=== PATIENT | female | born 1995 | race Caucasian/White ===

== ENCOUNTER 2022-08-27 10:39 | Emergency (ER) | payer OTHER, SELFPAY ==
[2022-08-27 10:58] VITALS: BP 128/55; PULSE 79; RESP 14; TEMP 36.6; O2SAT 99
--- NOTE | 2022-08-27 11:04 | DI.US.S_ITS ---
PROCEDURE: US OB <= 14 WEEKS FETUS INDICATIONS: BACK PAIN OUTSIDE/PRIOR DATING DATA: Last menstrual period (LMP): 05/30/2022 LMP-based estimated date of delivery (AYO): 03/06/2023 First dating scan (date and location): 08/27/2022 today Estimated date of delivery (AYO) from first dating scan: 03/01/2022 TECHNIQUE: Real-time scanning was performed of the fetus and maternal pelvic organs, with image documentation. Endovaginal scanning was also performed to better visualize the fetus and maternal ovaries. COMPARISON: None. FINDINGS: Intrauterine with ultrasound age of 13 weeks and 3 days. Estimated gestational age by LMP is 12 weeks and 5 days. Heart rate is 145 beats per minute. BPD is 2.2 cm. Head circumference is 8.3 cm. Abdominal circumference is 6.9 cm. Femur length is 1 cm. IMPRESSION: Living intrauterine with an ultrasound age of 13 weeks and 3 days. We strive to produce accurate, complete, and clear reports of imaging services. To assist us in improving patient care, this report was composed using standard report templates and voice recognition software. Therefore, it may contain abnormal punctuation, insertions and/or omissions. Occasional wrong-word or sound-alike substitutions may occur. Though we review the report and make efforts to correct it, we do recommend that the report be read carefully in proper context to recognize any text inaccuracies. Dictated by: Todd Berkowitz M.D. on 08/27/2022 at 11:50 Approved by: Todd Berkowitz M.D. on 08/27/2022 at 11:51
[2022-08-27 11:48] LABS: Add Manual Diff / Slide Review NO; Basophils Absolute Auto 100 /uL (0-100); Eosinophils Absolute Auto 200 /uL (0-450); Eosinophils Percent Auto 2.9 % (2-4); Hematocrit 38.5 % (36-46); Hemoglobin 13.1 g/dL (12.0-16.0); Lymphocytes Absolute Auto 2300 /uL (1100-4500); Lymphocytes Percent Auto 27.5 % (25-40); Mean Corpuscular HGB Conc 34.1 % (30-36); Mean Corpuscular Hemoglobin 30.3 PG (26-34); Monocytes Absolute Auto 400 /uL (0-900); Monocytes Percent Auto 4.6 % (3-14); Neutrophils Absolute Auto 5400 /uL (1500-7000); Platelet Count 252 X10^3/uL (150-400); Red Blood Cell Count 4.32 X10^6/uL (4.0-5.2); Red Cell Distribution Width 13.1 % (11.6-14.8); White Blood Cell Count 8.4 X10^3/uL (4.5-11.0)
[2022-08-27 11:54] LABS: Alanine Aminotransferase 12 IU/L (<35); Albumin 4.6 g/dL (3.5-5.0); Albumin Globulin Ratio 1.2 (1.0-2.8); Alkaline Phosphatase 71 U/L (38-126); Aspartate Aminotransferase 18 IU/L (14-36); BUN Creatinine Ratio 12.2 (6-22); Bilirubin Total 0.4 mg/dL (0.2-1.3); Blood Urea Nitrogen 5 mg/dL (7-17); Calcium 9.5 mg/dL (8.4-10.2); Carbon Dioxide 22 mmol/L (22-32); Chloride 102 mmol/L (98-107); Estimated Glomerular Filt Rate > 60 mL/min (>60); Globulin 3.8 g/dL (1.7-4.1); Glucose 82 mg/dL (70-100); HEMOLYSIS < 15 (0-50); Potassium 3.5 mmol/L (3.4-5.1); Sodium 135 mmol/L (137-145); Total Protein 8.4 g/dL (6.3-8.2)
[2022-08-27 12:40] LABS: HCG Quantitative /Beta subunit 38699 mIU/mL
== END 2022-08-27 13:00 | disposition left against medical advice (07) ==
PROVIDERS: Emergency Provider Emergency Medicine; PCP Student in an Organized Health Care Education/Training Program
DX: O26.891 Other specified pregnancy related conditions, first trimester (principal); M54.50 Low back pain, unspecified; Z3A.13 13 weeks gestation of pregnancy
CPT/HCPCS: 36415; 76801; 80053; 81003; 84702; 85025; 86850; 86900; 86901; 99284

== ENCOUNTER 2023-01-10 13:55 | Outpatient (CLI) | payer OTHER, SELFPAY ==
[2023-01-10 15:03] LABS: Appearance Urine UA CLEAR; Bilirubin Urine UA NEGATIVE (NEGATIVE); Color Urine UA YELLOW; Glucose Urine UA NEGATIVE (Negative); Ketones Urine UA NEGATIVE (NEGATIVE); Leukocyte Esterase Urine UA NEGATIVE (NEGATIVE); Nitrite Urine UA NEGATIVE (Negative); Occult Blood Urine UA NEGATIVE (Negative); Protein Urine UA NEGATIVE (Negative); Specific Gravity Urine UA <=1.005 (1.000-1.035); Urobilinogen Urine UA 0.2 E.U./dL (0.2)
[2023-01-10 15:04] LABS: pH Urine UA 6.5 (4.5-8.0)
[2023-01-10 15:22] LABS: Bacteria Urine Few (2-10); Culture Indicated Urine Cult Not Indicated; RBC Urine None Seen (0-5/HPF); Squamous Epithelial Cell Urine 5-10 /HPF (0-5/HPF); WBC Urine 1-5/HPF (0-5/HPF)
== END 2023-01-10 15:26 | disposition home or self-care (01) ==
LOC: LABOR 14:48 → OB 01-17 08:49
PROVIDERS: PCP Student in an Organized Health Care Education/Training Program; Referring Provider Obstetrics & Gynecology; Visit Provider Obstetrics & Gynecology
DX: O60.03 Preterm labor without delivery, third trimester (principal); O46.93 Antepartum hemorrhage, unspecified, third trimester; Z3A.32 32 weeks gestation of pregnancy
CPT/HCPCS: 59025; 81001; G0378; G0379

== ENCOUNTER 2023-01-12 06:41 | Inpatient (IN) | payer OTHER, SELFPAY ==
--- NOTE | 2023-01-12 | DI.US.S_ITS ---
PROCEDURE: US OB LIMITED INDICATIONS: BLEEDING OUTSIDE/PRIOR DATING DATA: Last menstrual period (LMP): 05/30/2022. LMP-based estimated date of delivery (AYO): 03/06/2023. First dating scan (date and location): 08/27/2022. Estimated date of delivery (AYO) from first dating scan: 03/01/2023. The calculations are made using the clinical AYO of 03/06/2023. TECHNIQUE: Real-time scanning was performed of the fetus, with image documentation. Endovaginal scanning: No COMPARISON: None. FINDINGS: A single living intrauterine gestation is present. Presentation: Vertex. Placenta: Placental position is anterior, without previa. Amniotic fluid index: 7.4 cm, normal range is 5-24 cm. Single deepest vertical pocket is 3.3 cm. heart rate: 153 beats per minute. Maternal cervical canal: 3.2 cm long. Normal lower limit is 2.5 cm. Estimated gestational age from initial scan: 32 weeks 3 days. IMPRESSION: Single living intrauterine at 32 weeks, 3 days, AYO of 05/30/2022. Borderline oligohydramnios. MARKO measures 7.4 centimeters, with deepest pocket measuring 3.3 centimeters. Cervix is closed. Dictated by: Jordan Lan M.D. on 01/12/2023 at 8:37 Approved by: Jordan Lan M.D. on 01/12/2023 at 8:45
--- NOTE | 2023-01-12 08:09 | P.TNLD_ITS ---
Visit Information Visit Information Date of evaluation: 01/12/23 On-call OB Provider: Ronda Sevilla Reason for Evaluation: Yes other Comments/Additional reasons for admission: here reporting vaginal bleeding at 32w2d accompanied by cramping. Anna woke around 0540 and felt some fluid coming out; thought it might be a little leaking urine, but when she went to the bathroom saw blood on the toilet paper and in the toilet. Contractions started soon after that. They are getting more painful now. Baby moving well. It's a girl. Denies other complaints. Reports normal with Leroy Poole. Planning to transfer to Dr. Sommer; has visit scheduled but has not yet been seen her yet by physician. History of pre-eclampsia with P1. History of hemorrhage with P1. History of GDM. Current Per ultrasound: Cervical length 3.2 cm. No signs of previa or placental abruption. Fetus vertex. Vital Signs Vital Signs: BP 118/71 Temp 98.1 F HR 120 RR 17 PFSH Medical History Anxiety Contact dermatitis Depression Gestational diabetes hemorrhage infection Preeclampsia Surgical History H/O dilation and curettage (~2015) [place] teeth extracted (~2015) Family History Father Diabetes mellitus Grandmother Hypertension Breast cancer Family/Other Hypertension Family/Other Breast cancer Family/Other Brain cancer Grandmother Brain cancer Social History marital status: number of children: 1 household members: spouse and children lives independently: Yes caregiver/support person: Yes [facility] pets and animals: No education level: college (some college) occupational status: employed current occupational exposures/hazards: No special carlos needs: No travel history: over 6 months ago seatbelt use: always water heater temp set < 120 deg: Yes working smoke detector in home: Yes fire extinguisher in home: No carbon monox detector in home: Yes firearms in home: Yes firearms unloaded and locked: Yes do you feel safe at home: Yes Smoking Status: Never smoker second hand exposure: Yes ( vapes, trying to quit) alcohol intake: former (very occasionally when not ) substance use type: does not use during the past year weight has: remained stable well-balanced diet: daily or most days daily servings fruits/ve or more times/day caffeine: Yes (~150mg/day) Type(s) of exercise: other (active w/ toddler) Review of Systems Review of Systems Narrative: negative except as mentioned in HPI. Exam Vital Signs (past 8 hours): see above Neck Neck: normal visual inspection Resp Effort & Inspection: normal respiratory effort Cardio Rate: regular rate Skin General: no rashes or lesions noted and other (several tattoos) Neuro General: patient oriented x3 and normal light touch, pain and propioception Extrem General: normal to inspection Psych Appearance: grossly normal Mental Status: mental status grossly normal Speech and Movement: speech and movement normal Mood: congruent mood Affect: normal affect Attitude: cooperative Thought Process: normal Thought Content: normal Other: Anxious Evaluation Evaluation Baseline heart rate: 125 Variability: Moderate (11-25) monitor accelerations: Present Monitor Decelerations: Absent Uterine Contraction Intensity: Moderate Status: Category l Diagnosis, Plan/Disposition Final Diagnosis (1) Vaginal bleeding during , antepartum: Status: Acute (2) Encounter for supervision of other normal , third trimester: Status: Acute (3) uterine contractions: Status: Acute Plan/Disposition Plan: CBC, CMP, ABO/Rh to be drawn. IV hydration. Consider testing for GC/CT/BV/yeast/trich. Discussed with lab. No affirm available. Can do urine GC/CT and wet mount. Will consider and report off to Dr. Sommer. Consider UC via straight cath due to bleeding. TVUS to evaluate placenta and cervical length. SVE TBD by Dr. Sommer. Signing out to Dr. Sommer.
[2023-01-12] MEDS: LACTATED RINGERS 1,000 ML 1000 ML IV (08:40)
[2023-01-12 08:51] LABS: Add Manual Diff / Slide Review NO; Basophils Absolute Auto 100 /uL (0-100); Basophils Percent Auto 0.8 % (0-2); Eosinophils Absolute Auto 100 /uL (0-450); Eosinophils Percent Auto 0.8 % (2-4); Hematocrit 35.1 % (36-46); Hemoglobin 11.8 g/dL (12.0-16.0); Lymphocytes Absolute Auto 1800 /uL (1100-4500); Mean Corpuscular HGB Conc 33.7 % (30-36); Mean Corpuscular Hemoglobin 30.1 PG (26-34); Mean Corpuscular Volume 89.1 fL (80-100); Monocytes Absolute Auto 700 /uL (0-900); Monocytes Percent Auto 5.4 % (3-14); Neutrophils Absolute Auto 10300 /uL (1500-7000); Platelet Count 276 X10^3/uL (150-400); Red Blood Cell Count 3.93 X10^6/uL (4.0-5.2); Red Cell Distribution Width 13.1 % (11.6-14.8)
[2023-01-12 09:10] LABS: Alanine Aminotransferase 12 IU/L (<35); Albumin 3.6 g/dL (3.5-5.0); Albumin Globulin Ratio 0.9 (1.0-2.8); Alkaline Phosphatase 122 U/L (38-126); Aspartate Aminotransferase 16 IU/L (14-36); BUN Creatinine Ratio 13.2 (6-22); Bilirubin Total 0.2 mg/dL (0.2-1.3); Blood Urea Nitrogen 5 mg/dL (7-17); Calcium 8.4 mg/dL (8.4-10.2); Carbon Dioxide 20 mmol/L (22-32); Chloride 105 mmol/L (98-107); Estimated Glomerular Filt Rate > 60 mL/min (>60); Globulin 3.9 g/dL (1.7-4.1); Glucose 85 mg/dL (70-100); HEMOLYSIS < 15 (0-50); Potassium 3.8 mmol/L (3.4-5.1); Sodium 134 mmol/L (137-145); Total Protein 7.5 g/dL (6.3-8.2)
--- NOTE | 2023-01-12 09:36 | PM.OBHP.IH.1 ---
OB HPI Date/Time Date of admission: 01/12/23 Date Patient Seen: 01/12/23 Time Patient Seen: 09:37 History of Present Condition Chief complaint: AYO Calculator Estimated Delivery Date Method Current WG Current Estimate 03/06/23 Manual 32w 3d late transfer Other Estimates 02/09/23 LMP (Uncertain) 36w 0d 03/06/23 Ultrasound #1 32w 3d 03/04/23 Ultrasound #2 32w 5d Estimated Gestational Age (weeks): 32+2 : 6 Para: 1 care: good care, initiated at week # (8), number of visits (6) and pounds weight gain (10) Dating criteria OB: LMP confirmed by 1st trimester US Ultrasounds: normal 1st trimester US and normal mid trimester US Obstetrical complications: none Preadmission Labs Last OB Lab Results: Blood Type A Positive 01/12/23 08:40 Antibody Screen Negative 01/12/23 08:40 Hematocrit 35.1 % (36-46) L 01/12/23 08:40 Hemoglobin 11.8 g/dL (12.0-16.0) L 01/12/23 08:40 Rubella Antibody 74.6 IU/mL (>15) 12/27/22 11:47 -: Chlamydia screen: negative, Gonorrhea screen: negative and Urine: negative -: PAP smear: Normal External Labs Blood type OB HPI: A (+) positive HCT: 35.1 -: Antibody screen: negative, HBsAG: negative, HIV: negative, RPR/VDLR: negative, Chlamydia screen: negative, Gonorrhea screen: negative, GBS status: unknown and Urine: negative -: Rubella: immune HCAB: negative PAP: Normal Glucose Tolerance Testin hr (128) Narrative: Declined genetic testing No Varicella results HgA1c 5.3 Prior (ies) Past Pregnancies Del. Date GA/Weeks Labor Lgth Wt Sex Route Outcome Anesthesia Place Delv Breastfeed Preg Comp Name 10/10/15 12 spontaneous 10/10/17 6-7 spontaneous 03/10/18 6-7 spontaneous 05/28/21 36 18 7 lb 8 oz Male vaginal live - [facility] 15 months pre-eclampsia gestational diabetes Des 03/09/22 6-7 spontaneous Delivery Date: 10/10/15 Last Updated by: Judy Raimrez RN required D&C Evaluation Evaluation Baseline heart rate: 135 Variability: Moderate (11-25) monitor accelerations: Present Monitor Decelerations: Absent Contraction Frequency (minutes): 7 Uterine Contraction Intensity: Mild Status: Category l Comments: Cervical length: 3.2 cm, no funneling U/S: Vertex, No previa or LLP, MARKO 7.4cm prior to gush of clear fluid at Center [facility], [facility] Medical History Anxiety Contact dermatitis Depression Gestational diabetes hemorrhage infection Preeclampsia Surgical History H/O dilation and curettage (~2015) [place] teeth extracted (~2015) Family History Father Diabetes mellitus Grandmother Hypertension Breast cancer Family/Other Hypertension Family/Other Breast cancer Family/Other Brain cancer Grandmother Brain cancer Social History marital status: number of children: 1 household members: spouse and children lives independently: Yes caregiver/support person: Yes housing: [facility] ([facility]) pets and animals: No education level: college (some college) occupational status: employed current occupational exposures/hazards: No special carlos needs: No travel history: over 6 months ago seatbelt use: always water heater temp set < 120 deg: Yes working smoke detector in home: Yes fire extinguisher in home: No carbon monox detector in home: Yes firearms in home: Yes firearms unloaded and locked: Yes do you feel safe at home: Yes Smoking Status: Never smoker second hand exposure: Yes ( vapes, trying to quit) alcohol intake: former (very occasionally when not ) substance use type: does not use during the past year weight has: remained stable well-balanced diet: daily or most days daily servings fruits/ve or more times/day caffeine: Yes (~150mg/day) Type(s) of exercise: other (active w/ toddler) Meds Home Medications and Allergies Home Medications Medication Instructions Recorded Confirmed Type aspirin 81 mg tablet,delayed 81 mg PO DAILY 01/11/23 01/11/23 History release buspirone 5 mg tablet 5 - 10 mg PO BID PRN 01/11/23 01/11/23 History cetirizine 10 mg capsule (Zyrtec) 10 mg PO DAILY PRN 01/11/23 01/11/23 History prenat.vits,theron,jif-emba-vhcjy 1 tab PO DAILY 01/11/23 01/11/23 History sertraline 100 mg tablet (Zoloft) 100 mg PO DAILY 01/11/23 01/11/23 History Allergies Allergy/AdvReac Type Severity Reaction Status Date / Time erythromycin base Allergy Severe Hives Verified 01/11/23 09:33 Penicillins Allergy Severe Hives Verified 01/11/23 09:33 OB Exam Narrative Exam Narrative: Generally: Patient lying in bed, no acute distress Lungs: Clear to auscultation bilaterally Cardiovascular: Regular rate and rhythm Fundal height: 31 cm, fundus nontender Extremities: No edema Objective Labs 01/12/23 08:40 01/12/23 08:40 Labs: Laboratory Results - last 24 hr 01/12/23 01/12/23 08:40 08:40 WBC 13.0 H RBC 3.93 L Hgb 11.8 L Hct 35.1 L MCV 89.1 MCH 30.1 MCHC 33.7 RDW 13.1 Plt Count 276 Neut % (Auto) 79.0 H Lymph % (Auto) 14.0 L [place] % (Auto) 5.4 Eos % (Auto) 0.8 L Baso % (Auto) 0.8 Neut # (Auto) 70978 H Lymph # (Auto) 1800 [place] # (Auto) 700 Eos # (Auto) 100 Baso # (Auto) 100 Sodium 134 L Potassium 3.8 Chloride 105 Carbon Dioxide 20 L BUN 5 L Creatinine 0.38 L Estimated GFR > 60 BUN/Creatinine Ratio 13.2 Glucose 85 Calcium 8.4 Total Bilirubin 0.2 AST 16 ALT 12 Alkaline Phosphatase 122 Total Protein 7.5 Albumin 3.6 Globulin 3.9 Albumin/Globulin Ratio 0.9 L Assessment and Plan Assessment and Plan Assessment and Plan narrative: Assessment: 27-year-old 6 para 1 at 32-,3/7 weeks gestation by a first-trimester ultrasound rupture of membranes 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 x1 Betamethasone 12.5 mg IM Ancef 2 g IV Magnesium sulfate 4 g IV load, 2 g maintenance Transferred to [facility], accepting physician Dr. Bingham Time Spent with Patient Total time spent with greater than 50% in coordination of care (as documented) at patient's floor/unit and/or counseling patient:: Greater than 35 minutes
[2023-01-12] MEDS: MAGNESIUM SULFATE 4 GM/100 ML PIGGYBACK IV (09:50)
[2023-01-12] MEDS: BETAMETHASONE 30 MG/5 ML MDV 12 MG IM (10:00)
[2023-01-12] MEDS: LACTATED RINGERS 1,000 ML 100 ML IV (10:05)
[2023-01-12] MEDS: MAGNESIUM SULFATE 20 GM/500 ML IV.SOLN IV (10:20)
[2023-01-12] MEDS: valACYclovir 500 MG TABLET PO (10:22)
[2023-01-12] MEDS: CEFAZOLIN VIAL 2 GM in SODIUM CHLORIDE 0.9% 100 ML IV (10:30)
== END 2023-01-12 10:36 | disposition home or self-care (01) | DRG 832 ==
PROVIDERS: Admitting Provider Advanced Practice Midwife; PCP Student in an Organized Health Care Education/Training Program; Referring Provider Obstetrics & Gynecology; Visit Provider Advanced Practice Midwife
DX: O42.913 Preterm premature rupture of membranes, unspecified as to length of time between rupture and onset of labor, third trimester (principal); O98.52 Other viral diseases complicating childbirth; B00.9 Herpesviral infection, unspecified; Z3A.32 32 weeks gestation of pregnancy
CPT/HCPCS: 59025; 59050; 76815; 80053; 85025; 86850; 86900; 86901; 96360; 96372; G0378; G0379; J0690; J0702; J3475

== ENCOUNTER 2025-08-12 16:05 | Emergency (ER) | payer OTHER, SELFPAY ==
[2025-08-12] VITALS (8 sets, daily range): BP systolic 63–119; BP diastolic 48–77; PULSE 71–91; RESP 16–22; TEMP 36.6; O2SAT 93–100; BMI 21.2
--- NOTE | 2025-08-12 16:33 | EKG_ITS ---
[facility]
--- NOTE | 2025-08-12 16:45 | DI.RAD.S_ITS ---
PROCEDURE: XR CHEST 1V
--- NOTE | 2025-08-12 16:46 | ED_ITS ---
HPI - Chest Pain
--- NOTE | 2025-08-12 16:46 | ED.CHESTPAIN ---
HPI - Chest Pain General Chief Complaint: Chest Pain Stated Complaint: chest pain/back pain/headache blurred vision Time Seen by Provider: 08/12/25 16:45 Source: patient Mode of arrival: Ambulatory Limitations: no limitations History of Present Illness HPI narrative: 29-year-old female recently diagnosed with tachycardia placed on a heart monitor but was allergic to the adhesive and so unable to complete presents today with headache behind the right eye along with blurred vision and also to bouts of chest pain midsternal that radiating directly to the back that was sharp. She has not take anything for the pain and nothing makes it better or worse. She denies any shortness of breath, dyspnea on exertion, leg pain, swelling, cough, sore throat, fever, chills, body aches, nausea, vomiting, diarrhea, abdominal pain. Other than what is stated 14 point review of system is negative. Related Data Home Medications ?Medication ?Instructions ?Recorded ?Confirmed aspirin 81 mg tablet,delayed 81 mg PO DAILY 01/11/23 01/11/23 release buspirone 5 mg tablet 5 - 10 mg PO BID PRN 01/11/23 01/11/23 cetirizine 10 mg capsule (Zyrtec) 10 mg PO DAILY PRN 01/11/23 01/11/23 prenat.vits,theron,dgg-ejtf-xlvda 1 tab PO DAILY 01/11/23 01/11/23 sertraline 100 mg tablet (Zoloft) 100 mg PO DAILY 01/11/23 01/11/23 Previous Rx's ?Medication ?Instructions ?Recorded ctyurqftew-dxypcavolmhcs-abaffpnd 1 cap PO Q4H PRN pain #30 caps 08/12/25 50 mg-300 mg-40 mg capsule (Fioricet) Allergies Allergy/AdvReac Type Severity Reaction Status Date / Time erythromycin base Allergy Severe Hives Verified 08/12/25 16:28 Penicillins Allergy Severe Hives Verified 08/12/25 16:28 Review of Systems Review of Systems ROS Unobtainable: All systems reviewed & are unremarkable except as noted in HPI and below Patient History Medical History Anxiety Contact dermatitis Depression Gestational diabetes hemorrhage infection Preeclampsia Surgical History H/O dilation and curettage (~2016) [place] teeth extracted (~2016) Family History Father Diabetes mellitus Grandmother Hypertension Breast cancer Family/Other Hypertension Family/Other Breast cancer Family/Other Brain cancer Grandmother Brain cancer Social History marital status: number of children: 1 household members: spouse and children lives independently: Yes caregiver/support person: Yes housing: [facility] pets and animals: No education level: college (some college) occupational status: employed current occupational exposures/hazards: No special carlos needs: No travel history: over 6 months ago seatbelt use: always water heater temp set < 120 deg: Yes working smoke detector in home: Yes fire extinguisher in home: No carbon monox detector in home: Yes firearms in home: Yes firearms unloaded and locked: Yes do you feel safe at home: Yes Smoking Status: Never smoker second hand exposure: Yes ( vapes, trying to quit) alcohol intake: former (very occasionally when not ) substance use type: does not use during the past year weight has: remained stable well-balanced diet: daily or most days daily servings fruits/ve or more times/day caffeine: Yes (~150mg/day) Type(s) of exercise: other (active w/ toddler) Smoking Status: Never smoker alcohol intake frequency: 0-2 drinks per day Exam Narrative Exam Narrative: GENERAL: [29] year old patient appears stated age. Well-developed patient, in mild distress. HEAD: Atraumatic. Normocephalic. EYES: Pupils equal round and reactive. Extraocular motions intact. No scleral icterus. No injection or drainage. ENT: Nose without bleeding, purulent drainage. Throat without erythema, tonsillar hypertrophy or exudate. Airway patent. NECK: Trachea midline. Non tender CARDIOVASCULAR: Regular rate and rhythm without murmurs, gallops, or rubs. RESPIRATORY: Clear to auscultation. Breath sounds equal bilaterally. No wheezes, rales, or rhonchi. GASTROINTESTINAL: Abdomen soft, non-tender, nondistended. EXTREMITIES: No edema or joint tenderness. BACK: Nontender without deformity or crepitance. No flank tenderness. NEURO: AOx3. SKIN: No rash or erythema of visible areas Initial Vital Signs Initial Vital Signs: Vital Signs Temperature 97.9 F 08/12/25 16:24 Pulse Rate 91 H 08/12/25 16:24 Respiratory Rate 18 08/12/25 16:24 Blood Pressure 119/71 08/12/25 16:24 Pulse Oximetry 99 08/12/25 16:24 Oxygen Delivery Method Room Air 08/12/25 16:24 Scores HEART Score Heart Score history: Slightly Suspicious Heart Score EKG: Normal Heart Score Age: < 45 years old Heart Score risk factors: No known risk factors Heart Score troponin: < or = to normal limit Heart Score Total: 0 Course Orders Ordered: ED Orders 08/12/25 16:33 EKG-12 Lead Stat 08/12/25 16:45 XR chest 1V Stat 08/12/25 16:59 Complete Blood Count AUTO DIFF Stat Comprehensive Metabolic Panel Stat D Dimer Stat Lipase Stat Magnesium Stat NT-proBNP (BNP-Adult 18+) Stat PTT Partial Thromboplastin Lamine Stat Prothrombin Time INR Stat Troponin & CK Cardiac Panel Stat Lactated Ringer's (Lactated Ringers) 1,000 mls @ 1,000 mls/hr IV BOLUS ONE Stop: 08/12/25 17:59 Last Infusion: 08/12/25 17:48 Dose: Infused Documented By: Admin: 08/12/25 17:09 Dose: 1,000 mls/hr Documented By: MARIE Discontinued Medications Acetaminophen (Acetaminophen 325 Mg Tablet) 975 mg PO NOW ONE Stop: 08/12/25 17:01 Last Admin: 08/12/25 17:09 Dose: 975 mg Documented By: MARIE Ketorolac Tromethamine (Ketorolac 30 Mg/Ml Vial) 15 mg IV NOW ONE Stop: 08/12/25 17:01 Last Admin: 08/12/25 17:10 Dose: 15 mg Documented By: MARIE Vital Signs Vital signs: Vital Signs - 8 hr 08/12/25 16:24 08/12/25 16:53 08/12/25 16:59 Temperature 97.9 F Pulse Rate 91 H Respiratory Rate 18 Blood Pressure 119/71 117/70 Pulse Oximetry 99 93 Oxygen Delivery Method Room Air 08/12/25 16:59 08/12/25 17:00 08/12/25 17:04 Temperature Pulse Rate 85 91 H Respiratory Rate Blood Pressure 63/48 L Pulse Oximetry 100 99 Oxygen Delivery Method 08/12/25 17:04 08/12/25 17:06 08/12/25 17:06 Temperature Pulse Rate 84 83 Respiratory Rate 17 16 Blood Pressure 105/70 Pulse Oximetry 98 99 Oxygen Delivery Method MDM - Chest Pain Lab Data 08/12/25 16:59 08/12/25 16:59 Labs: Lab Results 08/12/25 Range/Units 16:59 WBC 6.2 (4.5-11.0) X10^3/uL RBC 4.45 (4.0-5.2) X10^6/uL Hgb 13.5 (12.0-16.0) g/dL Hct 39.3 (36-46) % MCV 88.3 (80-100) fL MCH 30.3 (26-34) PG MCHC 34.3 (30-36) % RDW 13.0 (11.6-14.8) % Plt Count 254 (150-400) X10^3/uL Neut % (Auto) 51.9 (50-75) % Lymph % (Auto) 34.9 (25-40) % [place] % (Auto) 9.5 (3-14) % Eos % (Auto) 2.4 (2-4) % Baso % (Auto) 1.3 (0-2) % Neut # (Auto) 3200 (9324-4142) /uL Lymph # (Auto) 2200 (8210-3914) /uL [place] # (Auto) 600 (0-900) /uL Eos # (Auto) 200 (0-450) /uL Baso # (Auto) 100 (0-100) /uL PT 13.1 H (9.4-12.5) SECONDS INR 1.2 (0.9-1.3) APTT 29 (25.1-36.5) SECONDS D-Dimer < 215 (<500) ng/ml Sodium 137 (137-145) mmol/L Potassium 3.4 (3.4-5.1) mmol/L Chloride 102 (98-107) mmol/L Carbon Dioxide 24 (22-32) mmol/L BUN 10 (7-17) mg/dL Creatinine 0.66 (0.52-1.04) mg/dL Estimated GFR > 60 (>60) mL/min BUN/Creatinine Ratio 15.2 (6-22) Glucose 103 H (70-99) mg/dL Calcium 9.2 (8.4-10.2) mg/dL Magnesium 2.1 (1.6-2.3) mg/dL Total Bilirubin 0.4 (0.2-1.3) mg/dL AST 28 (14-36) IU/L ALT 16 (<35) IU/L Alkaline Phosphatase 51 (38-126) U/L Total Creatine Kinase 231 H (30-135) U/L Troponin I < 0.012 (0.01-0.034) ng/mL NT-Pro-B Natriuret Pep < 20 (<125) pg/mL Total Protein 7.8 (6.3-8.2) g/dL Albumin 4.7 (3.5-5.0) g/dL Globulin 3.1 (1.7-4.1) g/dL Albumin/Globulin Ratio 1.5 (1.0-2.8) Lipase 47 (23-300) U/L Imaging Data Chest x-ray: Radiologist's Impression: [place] [address] XRay Report Signed Patient: Anna Smith MR#: [id number] : 1995 Acct:[id number] Age/Sex: 29 / F Date of Service: 08/12/25 Loc: ED Accession Number: [id number] Procedure: XR chest 1V Ordering Provider: Js Oropeza D.O. PROCEDURE: XR CHEST 1V INDICATIONS: Chest Pain TECHNIQUE: One view of the chest was acquired. COMPARISON: None. FINDINGS: Surgical changes and devices: None. Lungs and pleura: Lungs are clear. No pleural effusions or pneumothorax. Mediastinum: Mediastinal contours appear normal. Heart size is normal. Bones and chest wall: No suspicious bony lesions. Overlying soft tissues appear unremarkable. IMPRESSION: No acute cardiopulmonary abnormality is seen. Dictated by: Tyler Castillo M.D. on 08/12/2025 at 17:35 Approved by: Tyler Castillo M.D. on 08/12/2025 at 17:37 ECG Data Interpretation: NSR HR 73 CT 128 QRS [address]-t wave change No previous EKG to compare MDM Narrative Medical decision making narrative: All lab work, vital signs, nurse triage note, medication list, previous ER visits, and all imaging studies reviewed. Troponin <0.012 and dimer < 215 . Chest x-ray showed no acute process. EKG normal sinus rhythm. Patient given lactated ringer 1 L bolus and Toradol 15 mg here. Differential diagnosis chest wall pain, asthma, viral, PE, pleurisy, costocohondritis, anxiety, GERD, migraine, dehydration. DC home on Fioricet Discharge Plan Departure Patient Disposition: Home Clinical Impression: Chest pain Qualifiers: Chest pain type: chest pain on breathing Qualified Code(s): R07.1 - Chest pain on breathing Migraine Qualifiers: Migraine type: migraine (< 15 days per month) without aura Status migrainosus presence: without status migrainosus Intractability: not intractable Qualified Code(s): G43.009 - Migraine without aura, not intractable, without status migrainosus Instructions: DI for Chest Pain Activity Restrictions/Additional Instructions: Return with new or worsening symptoms. Keep hydrated. Take medicine as directed for migraine. Follow up with PCP this week if no improvement in symptoms. Prescriptions: New ndhtnhcgcg-cxhlcsdrgeckw-sixs [Fioricet] 50-300-40 mg capsule 1 cap PO Q4H PRN (Reason: pain) Qty: 30 0RF No Action prenat.vits,theron,gfv-jqbm-vawnb Tablet 1 tab PO DAILY aspirin 81 mg tablet,delayed release (DR/EC) 81 mg PO DAILY buspirone 5 mg tablet 5 - 10 mg PO BID PRN Rx Instructions: Max dose 60mg day sertraline [Zoloft] 100 mg tablet 100 mg PO DAILY Zyrtec 10 mg capsule 10 mg PO DAILY PRN Referrals: Jace Mason MD [Primary Care Provider, Family Practice] Stand Alone Forms: Patient Portal/API
[2025-08-12 17:06] LABS: Add Manual Diff / Slide Review NO; Hematocrit 39.3 % (36-46); Hemoglobin 13.5 g/dL (12.0-16.0); Lymphocytes Absolute Auto 2200 /uL (1100-4500); Mean Corpuscular HGB Conc 34.3 % (30-36); Mean Corpuscular Hemoglobin 30.3 PG (26-34); Mean Corpuscular Volume 88.3 fL (80-100); Platelet Count 254 X10^3/uL (150-400)
[2025-08-12] MEDS: LACTATED RINGERS 1,000 ML 1000 ML IV (17:09)
[2025-08-12] MEDS: ACETAMINOPHEN 325 MG TABLET 975 MG PO (17:09)
[2025-08-12] MEDS: KETOROLAC 30 MG/ML VIAL 15 MG IV (17:10)
[2025-08-12 17:16] LABS: INR 1.2 (0.9-1.3); Prothrombin Time 13.1 SECONDS (9.4-12.5)
[2025-08-12 17:19] LABS: PTT Partial Thromboplastin Tim 29 SECONDS (25.1-36.5)
[2025-08-12 17:22] LABS: Alanine Aminotransferase 16 IU/L (<35); Albumin 4.7 g/dL (3.5-5.0); Albumin Globulin Ratio 1.5 (1.0-2.8); Alkaline Phosphatase 51 U/L (38-126); Blood Urea Nitrogen 10 mg/dL (7-17); Calcium 9.2 mg/dL (8.4-10.2); Carbon Dioxide 24 mmol/L (22-32); Chloride 102 mmol/L (98-107); Creatine Kinase 231 U/L (30-135); Estimated Glomerular Filt Rate > 60 mL/min (>60); Globulin 3.1 g/dL (1.7-4.1); Glucose 103 mg/dL (70-99); HEMOLYSIS < 15 (0-50); Lipase 47 U/L (23-300); Magnesium 2.1 mg/dL (1.6-2.3); Potassium 3.4 mmol/L (3.4-5.1); Sodium 137 mmol/L (137-145); Total Protein 7.8 g/dL (6.3-8.2)
[2025-08-12 17:34] LABS: NT-proBNP (BNP-Adult 18+) < 20 pg/mL (<125); Troponin I < 0.012 ng/mL (0.01-0.034)
== END 2025-08-12 18:13 | disposition home or self-care (01) ==
PROVIDERS: Emergency Provider Family Medicine
DX: R07.1 Chest pain on breathing (principal); G43.009 Migraine without aura, not intractable, without status migrainosus
CPT/HCPCS: 36415; 71045; 80053; 82550; 83690; 83735; 83880; 84484; 85025; 85379; 85610; 85730; 93005; 96361; 96374; 99284; J1885; J7120